=== PATIENT | female | born 1965 | race Two or more races ===

== ENCOUNTER 2023-07-07 11:04 | Inpatient (IN) | payer OTHER ==
[2023-07-07 11:53] VITALS: BMI 38.0
[2023-07-07] MEDS ORDERED: LOPERAMIDE HCL 2 MG CAPSULE PO PRN (12:50)
[2023-07-07] MEDS ORDERED: NALOXONE HCL (KLOXXADO) 8 MG SPRAY NS PRN (12:50)
[2023-07-07] MEDS ORDERED: MAG HYDROX/AL HYDROX/SIMETH 30 ML UNIT-DOSE CUP PO PRN (12:50)
[2023-07-07] MEDS ORDERED: ONDANSETRON *ODT* 4 MG TABLET SL PRN (12:50)
[2023-07-07] MEDS ORDERED: DICYCLOMINE HCL 10 MG CAPSULE PO PRN (12:50)
[2023-07-07] MEDS ORDERED: IBUPROFEN 600 MG TABLET (FP) PO PRN (12:50)
[2023-07-07] MEDS ORDERED: NALOXONE HCL 0.4 MG/ML VIAL IM PRN (12:50)
[2023-07-07] MEDS ORDERED: BENZONATATE 200 MG CAPSULE PO PRN (12:50)
[2023-07-07] MEDS ORDERED: BISMUTH SUBSALICYLATE 262 MG/15 ML BTL PO PRN (12:50)
[2023-07-07] MEDS ORDERED: guaiFENesin 600 MG TABLET.ER (FP) PO PRN (12:50)
[2023-07-07] MEDS ORDERED: BENZOCAINE/MENTHOL (CHLORASEPTIC ) LOZENGE MM PRN (12:50)
[2023-07-07] MEDS ORDERED: IBUPROFEN 400 MG TABLET (FP) PO PRN (12:50)
[2023-07-07] MEDS ORDERED: POLYETHYLENE GLYCOL (HEALTHYLAX) 3350 17 GM PACKET PO PRN (12:50)
[2023-07-07] MEDS ORDERED: ACETAMINOPHEN 325 MG TABLET (FP) PO PRN (12:50)
[2023-07-07] MEDS ORDERED: ALBUTEROL SO4 HFA INHALER IH PRN ×2 (13:18→22:21)
[2023-07-07] MEDS: hydrOXYzine PAMOATE 25 MG CAPSULE (FP) PO PRN (15:46)
[2023-07-07] MEDS: METHOCARBAMOL 500 MG TABLET PO PRN (15:46)
[2023-07-07] MEDS: diazePAM 5 MG TABLET PO SCH ×2 (20:00→21:14)
[2023-07-07] MEDS: MELATONIN 5 MG TABLETS PO SCH (22:15)
[2023-07-07] MEDS: THIAMINE 100 MG TABLET PO SCH (22:15)
[2023-07-08] MEDS: diazePAM 5 MG TABLET PO ONE (09:50)
[2023-07-08] MEDS: PRENATAL VITAMINS W/ FOLIC ACID TABLET (FP) PO SCH (09:51)
[2023-07-08] MEDS: MAGNESIUM HYDROX 2400MG/30ML ORAL SUSPENSION 30 ML CUP PO PRN (09:53)
[2023-07-08 11:00] VITALS: RESP 18; TEMP 97.8
[2023-07-08 11:25] LABS: POTASSIUM 4.8 mmol/L (3.5-5.1)
[2023-07-08 11:28] LABS: CALCIUM 9.2 mg/dL (8.5-10.1)
[2023-07-08 11:29] LABS: ALBUMIN 3.3 g/dl (3.4-5.0); BLOOD UREA NITROGEN 17.8 mg/dL (7-18); HEMATOCRIT 37.6 % (32.4-45.2); HEMOGLOBIN 12.2 GM/dL (10.7-15.3); MCH 28.9 pg (25.7-33.7); MCHC 32.4 g/dl (32.0-36.0); MEAN CELL VOLUME 89.1 fl (80-96); MEAN PLT VOLUME 7.4 fl (7.5-11.1); PLATELET COUNT 325 10^3/uL (134-434); RBC 4.22 M/mm3 (3.60-5.2); RDW 13.3 % (11.6-15.6)
[2023-07-08 11:32] LABS: CREATININE 0.9 mg/dL (0.55-1.3)
[2023-07-08 11:33] LABS: BILIRUBIN,TOTAL 0.5 mg/dL (0.2-1); TOT PROT 6.4 g/dl (6.4-8.2)
[2023-07-08 13:32] VITALS: BP 116/70; PULSE 87
[2023-07-08] MEDS ORDERED: LURASIDONE HCL 40 MG TABLET PO SCH (22:00)
== END 2023-07-08 13:54 | disposition home or self-care (01) | DRG 773 ==
LOC: YASAS 11:04 → Y6N 13:21
PROVIDERS: ADMIT Allergy & Immunology; ATTEND Surgery
PROC: HZ2ZZZZ Detoxification Services for Substance Abuse Treatment (ICD-10-PCS; principal; 2023-07-07)
DX: F11.20 Opioid dependence, uncomplicated (principal); F13.20 Sedative, hypnotic or anxiolytic dependence, uncomplicated; F17.210 Nicotine dependence, cigarettes, uncomplicated; F31.9 Bipolar disorder, unspecified; G47.00 Insomnia, unspecified; Z62.810 Personal history of physical and sexual abuse in childhood; Z63.8 Other specified problems related to primary support group
CPT/HCPCS: 36415; 80053; 80305; 80307; 82962; 85027; 86780; 93005; 93010